=== PATIENT | female | born 1950 | race Caucasian/White ===

== ENCOUNTER 2024-04-13 11:38 | Day surgery (SDC) | payer MEDICARE, OTHER, SELFPAY ==
--- NOTE | 2024-04-13 15:21 | ITS.CL.IMPLP ---
Cut Off [employer]yer Log - Implant Loop
Implant Loop
Procedure Report:
Date of Procedure: 04/13/24
Primary Care Provider: Dr Emory Gregg
Procedure: Insertable Loop Recorder Implantation
Indication:
Atrial fibrillation
She underwent PVI November 08, 2019 and has had no symptomatic recurrences. Monitoring is demonstrated no recurrences.
Loop recorder has been implanted as a means to more safely discontinue oral anticoagulation.
Procedure:
The patient was brought to the procedure area in a fasting state. The anterior chest was prepped and draped in standard sterile fashion. The fourth intercostal space along the left sternal border was identified and this area was anesthetized with 10
mL of 1% lidocaine. After gathering the skin in this area, a small punch incision was made at approx intercostal space 4-5 at left costo-sternal junction using the provided scalpel/punch tool. The loop recorder was loaded into the tunneling device.
A tunnel was created in the subcutaneous tissue at a 45� angle along the coronal plane away from the sternum and towards the left flank. The tunneling device was inverted and the plunger was depressed, inserting the loop recorder into the
subcutaneous space. The tunneling device was removed. Manual pressure provide hemostasis. Adequate signal was confirmed. The skin was closed with steri-strips. The estimated blood loss was < 1 cc. A clean dressing was placed over the wound.
There were no complications.
Implant:
[employer] Reveal LINQ II
Conclusion: Uncomplicated implantation of loop recorder.
Recommendation:
Stop oral anticoagulation and follow loop recorder. If there is sustained atrial fibrillation oral anticoagulation would once again be indicated.
Routine ILR care.
Copy:
Dr Emory Gregg
== END 2024-04-13 14:49 | disposition home or self-care (01) ==
LOC: CATH 11:38
PROVIDERS: ATTENDING PHYSICIAN Internal Medicine Cardiovascular Disease; FAMILY PHYSICIAN Internal Medicine
DX: Z09 Encounter for follow-up examination after completed treatment for conditions other than malignant neoplasm (principal); I48.91 Unspecified atrial fibrillation; Z79.01 Long term (current) use of anticoagulants
CPT/HCPCS: 33285; C1764